=== PATIENT | male | born 1975 | race African-American/Black ===

== ENCOUNTER 2021-10-25 22:33 | Emergency (ER) | payer OTHER ==
[~2021-10-25] VITALS: Ht 167.6 cm; Wt 87.0 kg
[2021-10-25 22:52] VITALS: BP 122/76
== END 2021-10-25 23:50 ==
LOC: ER 22:33
DX: S80.211A Abrasion, right knee, initial encounter (principal); S80.212A Abrasion, left knee, initial encounter; Z02.89 Encounter for other administrative examinations; T14.8XXA Other injury of unspecified body region, initial encounter; X58.XXXA Exposure to other specified factors, initial encounter; Y93.89 Activity, other specified; Y92.89 Other specified places as the place of occurrence of the external cause; Y99.8 Other external cause status
CPT/HCPCS: 99283